=== PATIENT | female | born 1950 | race Caucasian/White ===

== ENCOUNTER 2016-11-16 12:02 | Emergency (ER) | payer OTHER, MEDICARE ==
--- NOTE | 2016-11-16 12:07 | PDOC ---
History of Present Illness - General Chief Complaint: Respiratory Stated Complaint: RESPIRATORY Time Seen by Provider: 11/16/16 12:07 - History of Present Illness Initial Comments: 11/16/16 14:31 Chief complaint: Pleuritic right chest pain History of present illness: Patient complains of a severe exacerbation of right pleuritic chest pain for the last 2 days. She has had similar pain attributed to her COPD, most recently 1 month ago related to bronchitis. This was resolving until approximately one week ago. At that time the pain became slightly worse, then extremely severe 2 days ago. Her cough has resolved, there is no sputum production, and no shortness of breath. The pain is located over the entire right hemithorax, and limits deep inspiration Review of systems: Denies nausea vomiting diaphoresis visual or focal neurologic symptoms unsteadiness of gait shortness of breath abdominal pain hematemesis melena or bloody stool. She traveled by airplane and car from [place] 2 days ago, recently began vaginal estrogen for atrophic vaginitis, and has been on steroids for 2 days, oral Medrol Dosepak, for exacerbation of COPD Past medical history: COPD, breast cancer with implants, recurrent UTIs with atrophic vaginitis, migraine headaches. Medications: Imitrex,: Topamax, propranolol, Nitro-Bid, prednisone, Estrace cream, Celexa, and multiple vitamins. ALLERGIES: Codeine. Has had intravenous dye without reaction Social history: No history of smoking, alcohol abuse, nonprescription drugs. As noted above, visiting from [place] with recent prolonged air and car travel. Active without significant disability Family history: Negative for DVT, PE, or other blood clots, blood dyscrasias, early coronary artery disease, metabolic disease including diabetes, and cancer Physical exam: Alert and oriented 3, well-developed well-nourished, no acute distress, cheerful and cooperative Afebrile, vital signs normal including respiratory rate of 15 and unlabored, O2 saturation on room air 100%, and no tachycardia PERRLA, fundi benign, ENT clear Neck supple without bruit mass or nodes Lungs clear to P&A with full breath sounds throughout bilaterally. No wheezes rales or rhonchi. No dullness to percussion. If anything, there is mild hyperresonance bilaterally CV S1 and S2 distant without murmur rub or gallop pulses full and symmetric no JVD or edema regular Abdomen benign Neurological intact Extremities no CCE Skin clear, no rash, adequate turgor and wet mucous membranes Impression: Musculoskeletal chest pain, however, with risk factors of recent travel, estrogen and steroid use, rule out PE Plan: CTA of the lung and further treatment depending on results. Pain management. 11/19/16 07:09 Past History - Past Medical History Allergies/Adverse Reactions: Allergies Allergy/AdvReac Type Severity Reaction Status Date / Time codeine Allergy Unknown Verified 11/16/16 12:12 Home Medications: Ambulatory Orders Calcium Carbonate/Vitamin D3 [Calcium 600 + Vit D Tablet] 1 each PO DAILY Cholecalciferol (Vitamin D3) [Vitamin D3] 5,000 unit PO DAILY 11/16/16 Citalopram Hydrobromide [Citalopram HBr] 10 mg PO DAILY 11/16/16 Cyanocobalamin (Vitamin B-12) [B-12] 5,000 mcg PO DAILY 11/16/16 Flaxseed 1 tbs PO DAILY 11/16/16 Mv,Ca,Min/Folic Acid/Vit K1 [One-A-Day Women's 50 Plus Tab] 1 each PO DAILY Naproxen [Naprosyn] 375 mg PO BID #14 tablet 11/16/16 Nitrofurantoin Macrocrystal [Nitrofurantoin] 100 mg PO BID 11/16/16 Oxycodone HCl/Acetaminophen [Percocet 5-325 mg Tablet] 1 - 2 tab PO Q6H PRN #20 tab MDD 8 11/16/16 Prednisone [Deltasone -] 5 mg PO ASDIR 11/16/16 Propranolol HCl [Inderal] 20 mg PO DAILY 11/16/16 Sumatriptan Succinate [Imitrex -] 100 mg PO ASDIR PRN 11/16/16 Topiramate [Topamax] 50 mg PO DAILY 11/16/16 ED Treatment Course - LABORATORY CBC & Chemistry Diagram: 11/16/16 14:35 11/16/16 14:35 Medical Decision Making - Medical Decision Making 11/16/16 12:41 Chest x-ray reviewed: There is no sign of pneumonia, pleural effusion, or pneumothorax. Mild chronic changes of COPD are evident. Breast prostheses are visualized. CT negative for pulmonary embolus, other significant pathology. The patient has an ALLERGY to codeine which she describes as "making her heart pound making her jittery" no significant skin or airway reaction. She requested to try a Percocet. 11/16/16 18:39 Patient was given a Percocet. She was observed. There was no reaction. She will continue on Naprosyn and Percocet, omeprazole, but stop the nitrofurantoin, since this can cause nerve irritation. Return to ER if she is worse. Otherwise follow-up with primary physician 11/19/16 07:10 *DC/Admit/Observation/Transfer Diagnosis at time of Disposition: Chest pain, musculoskeletal - Discharge Dispostion Disposition: HOME Condition at time of disposition: Improved Admit: No - Prescriptions Prescriptions: Naproxen [Naprosyn] 375 mg PO BID #14 tablet Oxycodone HCl/Acetaminophen [Percocet 5-325 mg Tablet] 1 - 2 tab PO Q6H PRN #20 tab MDD 8 PRN Reason: Severe Pain - Referrals Referrals: Marko Baker MD [Staff Physician] - 3 days - Patient Instructions Printed Discharge Instructions: DI for Atypical Chest Pain Additional Instructions: Stop taking urinary tract antibiotic. Continue omeprazole (Prilosec). Eat frequent small meals. Continue your cortisone Dosepak unless he gets severe stomach irritation, in which she should discontinue this medication as well as the Naprosyn. Return to ER if symptoms worse. Otherwise follow-up with your primary physician.
[2016-11-16 12:31] VITALS: BP 152/78; PULSE 64; TEMP 98.2; BMI 28.7
[2016-11-16 12:42] LABS: URINE APPEARANCE Clear; URINE BILIRUBIN Negative (NEGATIVE); URINE BLOOD Negative (NEGATIVE); URINE GLUCOSE (UA) Negative (NEGATIVE); URINE KETONE Negative (NEGATIVE); URINE LEUK ESTERASE Negative (NEGATIVE); URINE NITRITE Negative (NEGATIVE); URINE PROTEIN Negative (NEGATIVE); URINE UROBILINOGEN 0.2 E.U/dl (0.2-1.0)
[2016-11-16 12:43] LABS: URINE COLOR YELLOW
[2016-11-16] MEDS ORDERED: SODIUM CHLORIDE 500 ML IV STA (14:20)
[2016-11-16 15:09] LABS: BASOPHIL 0.6 % (0-2.0); MCH 30.1 pg (25.7-33.7); MEAN CELL VOLUME 88.6 fl (80-96); MEAN PLT VOLUME 9.2 fl (7.5-11.1); NEUTROPHILS 87.1 % (42.8-82.8); PLATELET COUNT 257 K/MM3 (134-434); RDW 12.2 % (11.6-15.6); WHITE BLOOD COUNT 14.5 K/mm3 (4.0-10.8)
[2016-11-16 15:20] LABS: ALK PHOS 77 U/L (32-92); ANION GAP 10 (8-16); BILIRUBIN,TOTAL 0.7 mg/dl (0.2-1.0); CALCIUM 9.7 mg/dl (8.4-10.2); CO2 23 mmol/L (22-28); CREATININE 0.7 mg/dl (0.6-1.3); GLUCOSE,RANDOM 99 mg/dl (74-106); SGOT/AST 16 U/L (10-42); SGPT/ALT 15 U/L (10-40); TOT PROT 6.5 g/dl (6.4-8.3)
[2016-11-16] MEDS ORDERED: KETOROLAC TROMETHAMINE 30 MG/1 ML VIAL IVPUSH ONE (17:33)
[2016-11-16] MEDS ORDERED: traMADol HCL 50 MG TABLET PO ONE (17:34)
[2016-11-16] MEDS ORDERED: traMADol HCL 50 MG TABLET ONE (17:35)
[2016-11-16] MEDS ORDERED: KETOROLAC TROMETHAMINE 30 MG/1 ML VIAL ONE (17:35)
[2016-11-16] MEDS ORDERED: OXYCODONE/APAP 5/325MG COMBO TABLET PO ONE (18:12)
[2016-11-16] MEDS ORDERED: OXYCODONE/APAP 5/325MG COMBO TABLET ONE (18:20)
== END 2016-11-16 18:50 | disposition home or self-care (01) ==
LOC: FER 12:02
PROC: 3E0333Z Introduction of Anti-inflammatory into Peripheral Vein, Percutaneous Approach (ICD-10-PCS; principal; 2016-11-16)
PROC: 3E0337Z Introduction of Electrolytic and Water Balance Substance into Peripheral Vein, Percutaneous Approach (ICD-10-PCS; 2016-11-16)
DX: R07.89 Other chest pain (principal)
CPT/HCPCS: 36415; 71020-TC; 71275-TC; 80053; 81003; 85025; 87086; 87186; 99282-25